=== PATIENT | female | born 1965 | race American Indian/Alaskan Native ===

== ENCOUNTER 2016-05-27 13:07 | Emergency (ER) | payer SELFPAY ==
[2016-05-27 13:53] LABS: BUN/Creatinine Ratio 13.75; Blood Urea Nitrogen 11 mg/dL (7-17); Calcium 9.6 mg/dL (8.4-10.2); Carbon Dioxide 24 mmol/L (22-30); Glucose 129 mg/dL (65-100)
[2016-05-27 13:54] LABS: Anion Gap 19 mmol/L; Chloride 98.7 mmol/L (98-107); Potassium 3.5 mmol/L (3.6-5.0); Sodium 138 mmol/L (137-145)
[2016-05-27 13:56] LABS: Basophils % (Auto) 0.9 % (0.0-1.8); Eosinophils % (Auto) 0.6 % (0.0-4.3); Hematocrit 41.5 % (30.3-42.9); Hemoglobin 14.3 gm/dl (10.1-14.3); Mean Corpuscular HGB Conc 34 % (30-34); Mean Corpuscular Hemoglobin 28 pg (28-32); Mean Corpuscular Volume 81 fl (79-97); Platelet Count 378 K/mm3 (140-440); Red Blood Count 5.14 M/mm3 (3.65-5.03); Red Cell Distribution Width 15.2 % (13.2-15.2); White Blood Count 8.3 K/mm3 (4.5-11.0)
[2016-05-27] MEDS ORDERED: CATAPRES PO ONE (14:08)
--- NOTE | 2016-05-27 14:25 | Emergency Department Report ---
HPI - General Chief Complaint: High BP Time Seen by Provider: 05/27/16 14:09 - [facility] HPI: Room 7 The patient is a 50-year-old female presenting with chief complaint of headache. The patient states she has been unable to obtain her diabetes and hypertension medications for 1 month. The patient states she's had intermittent headaches for the past month. The patient states yesterday she began "feeling bad" which includes her headache. She also complained of feeling dizzy and seeing stars at times. The patient states she checked her blood pressure found it to be high (230s/130s). Location: Head Duration: [see above] Quality: Headache Severity: 0/10 Modifying factors: [see above] Context: [see above] Mode of transportation: [not driving] ED Past Medical Hx - Past Medical History Previous Medical History?: Yes Hx Hypertension: Yes Hx Diabetes: Yes Additional medical history: Vaginal delivery x 3 - Surgical History Past Surgical History?: Yes Additional Surgical History: Tubaligation - Family History Family history: no significant - Social History Smoking Status: Current Every Day Smoker (one pack per day) Substance Use Type: Alcohol (occasional), Marijuana, Prescribed - Medications Home Medications: Home Medications Medication Instructions Recorded Confirmed Last Taken Type Lisinopril [Zestril] 20 mg PO BID 05/27/16 05/27/16 Unknown History amLODIPine [Norvasc] 5 mg PO DAILY #90 tab 05/27/16 Unknown Rx metFORMIN [Glucophage] 500 mg PO BID #30 tablet 05/27/16 Unknown Rx ED Review of Systems ROS: Stated complaint: HIGH BLOOD PRESSURE Other details as noted in HPI Comment: All other systems reviewed and negative Constitutional: denies: chills, fever Eyes: denies: eye pain, eye discharge, vision change ENT: denies: ear pain, throat pain Respiratory: denies: cough, shortness of breath, wheezing Cardiovascular: denies: chest pain, palpitations Endocrine: no symptoms reported Gastrointestinal: denies: abdominal pain, nausea, diarrhea Genitourinary: denies: urgency, dysuria, discharge Musculoskeletal: denies: back pain, joint swelling, arthralgia Skin: denies: rash, lesions Neurological: headache, other (dizziness) Psychiatric: denies: anxiety, depression Hematological/Lymphatic: denies: easy bleeding, easy bruising Physical Exam - Physical Exam Vital Signs: Vital Signs 05/27/16 05/27/16 05/27/16 13:05 13:13 13:19 Temperature 98.9 F Pulse Rate 92 H 72 72 Respiratory 17 20 20 Rate Blood Pressure 230/119 O2 Sat by Pulse 98 99 99 Oximetry 05/27/16 05/27/16 14:00 14:13 Temperature Pulse Rate 79 74 Respiratory 24 Rate Blood Pressure 206/112 204/112 O2 Sat by Pulse 95 Oximetry Physical Exam: GENERAL: The patient is well-developed well-nourished female lying on stretcher not appearing to be in acute distress. [] HEENT: Normocephalic. Atraumatic. Extraocular motions are intact. Patient has moist mucous membranes. NECK: Supple. Trachea midline CHEST/LUNGS: Clear to auscultation. There is no respiratory distress noted. HEART/CARDIOVASCULAR: Regular. There is no tachycardia. There is no gallop rub or murmur. ABDOMEN: Abdomen is soft, nontender. Patient has normal bowel sounds. There is no abdominal distention. SKIN: There is no rash. There is no edema. There is no diaphoresis. NEURO: The patient is awake, alert, and oriented. The patient is cooperative. The patient has no focal neurologic deficits. The patient has normal speech. Cranial nerves II-12 grossly intact, no drift MUSCULOSKELETAL: There is no evidence of acute injury. ED Course Vital Signs 05/27/16 05/27/16 05/27/16 13:05 13:13 13:19 Temperature 98.9 F Pulse Rate 92 H 72 72 Respiratory 17 20 20 Rate Blood Pressure 230/119 O2 Sat by Pulse 98 99 99 Oximetry 05/27/16 05/27/16 14:00 14:13 Temperature Pulse Rate 79 74 Respiratory 24 Rate Blood Pressure 206/112 204/112 O2 Sat by Pulse 95 Oximetry ED Medical Decision Making - Lab Data Result diagrams: 05/27/16 13:21 05/27/16 13:21 Laboratory Tests 05/27/16 05/27/16 13:21 13:21 WBC 8.3 RBC 5.14 H Hgb 14.3 Hct 41.5 MCV 81 MCH 28 MCHC 34 RDW 15.2 Plt Count 378 Lymph % (Auto) 27.6 [place] % (Auto) 7.4 H Eos % (Auto) 0.6 Baso % (Auto) 0.9 Lymph # 2.3 [place] # 0.6 Eos # 0.1 Baso # 0.1 Seg Neutrophils % 63.5 Seg Neutrophils # 5.3 Sodium 138 Potassium 3.5 L Chloride 98.7 Carbon Dioxide 24 Anion Gap 19 BUN 11 Creatinine 0.8 Estimated GFR > 60 BUN/Creatinine Ratio 13.75 Glucose 129 H Calcium 9.6 Troponin T < 0.010 - EKG Data -: EKG Interpreted by Me EKG shows normal: sinus rhythm Rate: normal - EKG Data When compared to previous EKG there are: previous EKG unavailable Interpretation: nonspecific ST-T wave m[place] (T-wave inversion in lead aVL) - Radiology Data Radiology results: report reviewed (CT head), image reviewed (CT head) CT head (read by radiologist)-cranial CT scan within normal limits - Differential Diagnosis hypertensive urgency, ICH, Critical care attestation.: If time is entered above; I have spent that time in minutes in the direct care of this critically ill patient, excluding procedure time. ED Disposition Clinical Impression: Headache, Hypertension Disposition: DISCHARGED TO HOME OR SELFCARE Is pt being admited?: No Does the pt Need Aspirin: No Condition: Stable Instructions: Hypertension (ED) Additional Instructions: Return to the emergency department immediately should you develop worsening symptoms, fever, inability to tolerate food or liquid or any other concerns. Prescriptions: amLODIPine [Norvasc] 5 mg PO DAILY #90 tab metFORMIN [Glucophage] 500 mg PO BID #30 tablet Referrals: PRIMARY CARE, [Primary Care Provider] - 3-5 Days [facility] [Outside] - 3-5 Days Time of Disposition: 15:33
--- NOTE | 2016-05-27 14:40 | Cat Scan Report ---
CT HEAD WITHOUT CONTRAST: HISTORY: Headache, hypertension. Serial contiguous axial images were obtained through the cranium. Intravenous contrast material was not administered. The ventricles are normal in size and appearance. There is no mass effect or midline shift. No areas of abnormally increased or decreased attenuation are seen. No mass lesion is seen. The mastoid air cells and visualized portions of the sinuses are normal. IMPRESSION: Cranial CT scan within normal limits.
[2016-05-27 15:27] VITALS: BP 191/108
== END 2016-05-27 15:46 | disposition home or self-care (01) ==
LOC: ED 13:07
DX: R51 Headache (principal); I10 Essential (primary) hypertension; E11.9 Type 2 diabetes mellitus without complications; F17.210 Nicotine dependence, cigarettes, uncomplicated; F12.90 Cannabis use, unspecified, uncomplicated
CPT/HCPCS: 36415; 70450; 80048; 84484; 85025; 93005; 93010